=== PATIENT | male | born 1960 | race Caucasian/White ===

== ENCOUNTER → 2016-06-15 | Outpatient (REF) | payer OTHER ==
[2016-06-15 18:43] LABS: COLLAGEN ADP 191 SECONDS (56-103)
== END ==
LOC: M LABDRAW1 16:56
PROVIDERS: ATTEND Physician Assistant
DX: Z01.818 Encounter for other preprocedural examination (principal)

== ENCOUNTER → 2016-08-02 | Outpatient (REF) | payer OTHER ==
[2016-08-02 20:13] LABS: REASON FOR REVIEW COMPREHENSIVE REVIEW
[2016-08-03 11:09] LABS: ALBUMIN 3.87 GM/DL (3.29-5.55); ALBUMIN % 55.3 % (55.8-66.1); GAMMA GLOBULIN % 14.7 % (11.1-18.8)
== END ==
LOC: M LAB REF 16:22
PROVIDERS: ATTEND Internal Medicine Medical Oncology
DX: D69.1 Qualitative platelet defects (principal)

== ENCOUNTER → 2016-08-12 | Outpatient (REF) | payer OTHER | LOC: M LAB REF 16:25 | PROVIDERS: ATTEND Internal Medicine Medical Oncology | DX: D69.1 Qualitative platelet defects (principal) ==

== ENCOUNTER 2018-02-27 14:57 | Emergency (ER) | payer OTHER ==
[~2018-02-27] VITALS: Ht 180.3 cm; Wt 135.6 kg
[2018-02-27] MEDS ORDERED: SIMV80TA13 PO (15:06)
[2018-02-27] MEDS ORDERED: LISI40TA PO (15:06)
[2018-02-27] MEDS ORDERED: ZYRT10CA PO (15:06)
[2018-02-27] MEDS ORDERED: HYDR25TAB PO (15:06)
[2018-02-27] MEDS ORDERED: METF10004 PO (15:06)
[2018-02-27] MEDS ORDERED: INSUH10VL SC (15:09)
[2018-02-27] MEDS ORDERED: PROT1TAB2 PO (15:09)
[2018-02-27] MEDS ORDERED: LANTINJ4 SQ (15:09)
[2018-02-27] MEDS ORDERED: FERR325T3 PO (15:09)
[2018-02-27] MEDS ORDERED: CEPHALEXIN 500 MG CAP PO ONE (16:00)
[2018-02-27] MEDS ORDERED: LIDOCAINE 2% MDV 20 ML VIAL SC ONE (16:00)
--- NOTE | 2018-02-27 16:19 | REP ---
LEFT HAND, FOUR VIEWS: HISTORY: Laceration. There is no acute fracture or dislocation. The joint spaces are normal in appearance. IMPRESSION:There is no acute fracture or dislocation. Electronically Signed by Jeff Arenas MD 02/27/2018 04:19 P
[2018-02-27] MEDS ORDERED: KEFL500C17 PO (16:35)
[2018-02-27 16:40] VITALS: BP 110/67
== END 2018-02-27 16:44 | disposition home or self-care (01) ==
LOC: M ED 14:57
DX: S61.211A Laceration without foreign body of left index finger without damage to nail, initial encounter (principal); S61.213A Laceration without foreign body of left middle finger without damage to nail, initial encounter; W27.0XXA Contact with workbench tool, initial encounter; Y92.89 Other specified places as the place of occurrence of the external cause

== ENCOUNTER → 2020-05-30 | Outpatient (CLI) | payer OTHER ==
[~2020-05-30] MED LIST: FERR325T3 PO; HYDR-3490 PO; INSUH10VL SC; KEFL500C17 PO; LANTINJ4 SQ; LISI40TA4 PO; METF10004 PO; PROT1TAB2 PO; SIMV80TA13 PO; ZYRT10CA PO
[2020-05-31 12:07] LABS: ANTINUCLEAR ANTIBODIES DIRECT Negative (Negative)
== END ==
LOC: M PLALAB 08:56
PROVIDERS: ATTEND Psychiatry & Neurology Neurology
DX: R51.9 Headache, unspecified (principal)